=== PATIENT | male | born 1945 | race Two or more races ===

== ENCOUNTER → 2024-07-04 10:52 | Outpatient (BNV) | payer MEDICARE, MEDICAID, SELFPAY ==
[2024-07-04 10:52] VITALS: BP 143/71; PULSE 70; RESP 16; TEMP 35.9; O2SAT 97; BMI 33.5
--- NOTE | 2024-07-04 10:52 | URONOTE_ITS ---
Intake Vital Signs 07/04/24 10:52 Height 1.63 m Height Method Stated Weight 88.451 kg Weight Measurement Method Standing Scale BMI 33.5 Temp 96.6 F L Temp Source Temporal Artery Scan Pulse 70 Pulse Source Monitor Respiration 16 BP 143/71 H Blood Pressure Source Automatic Cuff Blood Pressure Location Left Upper Arm Position Sitting Pulse Oximetry (%) 97 Oxygen Delivery Method Room Air Intake Immunizations / Flu Flu Vaccine in the Last 12 Months: Yes Flu Vaccine Exclusion Criteria: Already Received Smoking Status Smoking Status: Never smoker Nurse's Notes Nurse's Notes Present with doctor during prostate exam. pt will be scheduled for prostate biopsy at [facility]. pt will follow up with Dr. Benitez in 4 months. pts name placed on Dr. Ruiz's list. ms Questionnaires Social History Living Situation History Housing: House Tobacco History Smoking Status: Never smoker Alcohol History Alcohol Intake: Current Alcohol Intake Frequency: holidays/special occasions only Review of Systems Report any current symtoms Select symptoms you are currently experiencing: Past Medical History Past Medical History Have you ever been diagnosed with any of the following: Cardiology Problems Hypercholesterolemia: Yes Congestive Heart Failure: No Hypertension: Yes Respiratory Problems Chronic Obstructive Pulmonary Disease (COPD): No Stomache/Intestinal Problems Gastroesophageal Reflux Disease: Yes Genital/Urinary Problems Renal Disease: No Benign Prostatic Hyperplasia: Yes Musculoskeletal Problems Arthritis: Yes Head,Eye,Nose,Throat Problems Cataracts: Yes Endocrine Problems Diabetes Mellitus Type 1: No Diabetes Mellitus Type 2: Yes Office Procedures Uro Level of Care Nursing/Assessment/Reassessment Patient Status: Established Patient Nursing Assessment/Reassessment: Update [facility] data in EMR, Vital Signs and Medication Reconciliation Coordination of Care: Simp Pt/[facility] Ed for care Special Needs: Language special needs Established Patient Point Assignment: 50 Established Patient Point Charge: EP Level 2 (40-75) Procedure IM Injection: No Provider Notes Provider Notes HISTORY OF PRESENT ILLNESS: [] REVIEW OF SYSTEMS: [] EXAM: [] ASSESSMENT & PLAN: [] VISIT DIAGNOSIS: []
== END ==
DX: I10 Essential (primary) hypertension (principal)
CPT/HCPCS: 99212; G0463

== ENCOUNTER → 2024-07-04 | Outpatient (BNVA) | payer MEDICARE, MEDICAID, SELFPAY | END | disposition home or self-care (01) | PROVIDERS: PCP Physician Assistant Medical; Referring Provider Physician Assistant Medical; Visit Provider Urology | DX: N40.1 Benign prostatic hyperplasia with lower urinary tract symptoms (principal); N13.8 Other obstructive and reflux uropathy; C61 Malignant neoplasm of prostate; Z80.42 Family history of malignant neoplasm of prostate; E11.9 Type 2 diabetes mellitus without complications; I10 Essential (primary) hypertension; E66.9 Obesity, unspecified | CPT/HCPCS: 99212; G0463 ==

== ENCOUNTER → 2025-01-29 | Outpatient (BNVA) | payer MEDICARE, MEDICAID, SELFPAY | END | disposition home or self-care (01) | PROVIDERS: PCP Physician Assistant Medical; Referring Provider Physician Assistant Medical; Visit Provider Urology | DX: N40.1 Benign prostatic hyperplasia with lower urinary tract symptoms (principal); N13.8 Other obstructive and reflux uropathy; C61 Malignant neoplasm of prostate; Z80.42 Family history of malignant neoplasm of prostate; E11.9 Type 2 diabetes mellitus without complications; I10 Essential (primary) hypertension; E66.9 Obesity, unspecified; Z68.34 Body mass index [BMI] 34.0-34.9, adult; E78.00 Pure hypercholesterolemia, unspecified; K21.9 Gastro-esophageal reflux disease without esophagitis | CPT/HCPCS: 99212; G0463 ==

== ENCOUNTER 2025-04-05 12:45 | Emergency (ER) | payer MEDICARE, MEDICAID, SELFPAY ==
[2025-04-05] VITALS (7 sets, daily range): BP systolic 170–193; BP diastolic 66–86; PULSE 68–89; RESP 16–18; TEMP 36.8–37.2; O2SAT 95; BMI 30.8
--- NOTE | 2025-04-05 13:14 | XR_ITS ---
Examination: CT soft tissue neck, with intravenous contrast. 2-D coronal reconstructions. 2-D sagittal reconstructions. Date and time of exam :April 05, 2025, 1538 hours INDICATIONS: Right-sided neck swelling beginning 2 days ago. CTDI: vol (mGy):11.8 DLP: (mGycm):352 Technique: 1.25 mm axial sections of the neck of the obtained. Coronal and sagittal reconstructions have been obtained. Intravenous contrast administered 50 cc Isovue-370. Low dose protocols were performed. One or more of the following dose reduction techniques were used; automated exposure control, adjustment of the mA and/or KV according to patient size, use of iterative reconstruction technique. Findings: 4.0 x 3.6 x 2.1 cm enhancing mass in the central left sphenoid ridge region most consistent with sphenoid ridge meningioma with extensive edema surrounding this mass and marked mass effect upon the frontal horns Edema in the frontal lobes is very extensive Symmetrical nasopharynx oropharynx Heavy right carotid calcification Septated cystic mass in the right neck lateral to the laryngeal cartilage, 4.1 x 3.6 cm x 6.7 cm which merges with the right lobe of the thyroid Normal epiglottis IMPRESSION: 4.0 x 3.6 x 2.1 cm enhancing mass in the central left subfrontal region most consistent with sphenoid ridge meningioma, extensive surrounding edema Recommend brain MRI follow-up pre and postcontrast Large septated cystic mass in the right neck lateral to the laryngeal cartilage which merges with the right lobe of the thyroid Recommend thyroid sonography follow-up
--- NOTE | 2025-04-05 13:15 | PD.EDRME ---
Rapid Medical Screening Exam RME Arrival date/time: 04/05/25 12:45 80-year-old male presents to the Emergency Department today for complaint of right-sided neck swelling ongoing x 1 day Chief Complaint: Skin/Abscess/Foreign Body Vital signs: Vital Signs Temperature 99 F 04/05/25 13:11 Pulse Rate 83 04/05/25 13:11 Respiratory Rate 18 04/05/25 13:11 Blood Pressure 170/66 H 04/05/25 13:11 Pulse Oximetry (%) 95 04/05/25 13:11 Oxygen Delivery Method Room Air 04/05/25 13:11
[2025-04-05 13:50] LABS: Basophils # (Auto) 0.0 Thou/mm3 (0.0-0.2); Basophils % (Auto) 0 % (0-2.5); Eosinophils # (Auto) 0.0 Thou/mm3 (0.0-0.5); Eosinophils % (Auto) 0 % (0-10); Hematocrit 42.1 % (41.0-53.0); Hemoglobin 15.2 g/dL (13.5-16.0); Immature Granulocytes Auto 0.03 Thou/mm3 (0.00-0.00); Lymphocytes # (Auto) 1.2 Thou/mm3 (1.0-4.8); Lymphocytes % (Auto) 16 % (10-50); Mean Corpuscular HGB Conc 36.1 g/dl (31.0-37.0); Mean Corpuscular Hemoglobin 31.0 pg (25.0-35.0); Mean Corpuscular Volume 86 fL (80-100); Monocytes # (Auto) 0.4 Thou/mm3 (0.0-0.8); Monocytes % (Auto) 6 % (0-12); Neutrophils # (Auto) 5.7 Thou/mm3 (1.8-7.7); Neutrophils % (Auto) 78 % (37-80); Nucleated Red Blood Cell # 0.00 Thou/mm3 (0.00-0.00); Nucleated Red Blood Cell % 0 /100 WBC (0); Platelet Count 184 Thou/mm3 (140-440); RDW Standard Deviation 36.6 fL (35.1-43.9); Red Blood Count 4.90 Miln/mm3 (4.50-5.90); White Blood Count 7.4 Thou/mm3 (3.8-10.6)
[2025-04-05 14:05] LABS: INR 1.0 (0.9-1.3); Partial Thromboplastin Time 25.2 Seconds (22.0-36.0); Prothrombin Time 11.0 Seconds (9.0-12.2)
[2025-04-05 14:09] LABS: Alanine Aminotransferase 38 U/L (10-49); Albumin, Serum 4.6 gm/dL (3.4-4.8); Albumin/Globulin Ratio 2.4 (1.2-2.2); Alkaline Phosphatase 98 U/L (46-116); Anion Gap 10 (7-16); Aspartate Amino Transferase 30 U/L (0-34); BUN/Creatinine Ratio 12 Ratio (12-20); Bilirubin,Total 1.4 mg/dL (0.3-1.2); Blood Urea Nitrogen 12 mg/dL (9-23); Calcium 9.8 mg/dL (8.3-10.6); Calcium (Corrected) 9.8 mg/dL (8.5-10.1); Carbon Dioxide 23.2 mMol/L (20.0-31.0); Chloride 101 mMol/L (98-107); Creatinine (Component) 1.0 mg/dL (0.6-1.3); Estimated Creatinine Clearance 62.8 mL/min (>60); Globulin 1.9 gm/dL (2.3-3.5); Osmolality,Calculated 288 (275-295); Potassium 4.1 mMol/L (3.4-5.1); Sodium 134 mMol/L (136-145); Total Protein 6.5 gm/dL (5.7-8.2); eGFR > 60 See Note
[2025-04-05 14:11] LABS: Glucose 469 mg/dL (74-106)
[2025-04-05] MEDS: SODIUM CHLORIDE 0.9% 1000 ML 1,000 ML 999 ML IV (15:39)
[2025-04-05 15:42] LABS: Glucose Estimated Average 217 mg/dL (80-131); Hemoglobin A1C 9.2 % Hgb (4.8-6.0)
[2025-04-05] MEDS: INSULIN HUM REGULAR 1 UNIT/0.01 ML (PER UNIT) 10 UNIT SC (17:59)
--- NOTE | 2025-04-05 18:26 | PD.EDSKIN ---
ED Skin Abcess FB-RME/HPI General Chief complaint: Skin/Abscess/Foreign Body Stated complaint: Abscess to right lower neck since yesterday Time Seen by Provider: 04/05/25 17:40 Arrival date/time: 04/05/25 12:45 RME / HPI RME / HPI narrative: 04/05/25 12:45 80-year-old male presents to the Emergency Department today for complaint of right-sided neck swelling ongoing x [address] LITTLE MAIN ED EVALUATION: Patient inadvertently noted swelling to the base of the right anterior neck x 1 day [employer]. Seen by PMD earlier today who referred patient to ED due to sub-optimally controlled blood pressure and blood sugar. No reported fevers, chills, difficulty swallowing or breathing. Related Data Home Medications ?Medication ?Instructions ?Recorded ?Confirmed amlodipine 10 mg tablet (Norvasc) 10 mg PO QDAY #0 tabs 12/02/16 01/29/25 insulin glargine 100 unit/mL 30 unit subcut QPM 05/11/19 01/29/25 subcutaneous solution (Lantus U-100 Insulin) tamsulosin 0.4 mg capsule 0.4 mg PO QDAY 10/05/19 01/29/25 docusate sodium 100 mg capsule 100 mg PO BID PRN 03/23/22 01/29/25 latanoprost 0.005 % eye drops 1 drp Both eyes QPM 03/23/22 01/29/25 losartan 50 mg-hydrochlorothiazide 1 tab PO QDAY 03/23/22 01/29/25 12.5 mg tablet cholecalciferol (vitamin D3) 125 125 mcg PO QDAY 12/08/22 01/29/25 mcg (5,000 unit) capsule finasteride 5 mg tablet 5 mg PO QDAY 07/06/23 01/29/25 Previous Rx's ?Medication ?Instructions ?Recorded levetiracetam 500 mg tablet 500 mg PO BID #60 tabs 05/11/19 (Keppra) Allergies Allergy/AdvReac Type Severity Reaction Status Date / Time No Known Allergies Allergy Verified 01/29/25 11:26 Review of Systems Review of Systems Systems Reviewed: All systems reviewed, normal except as documented Past Medical History Past Medical History CARDIAC: Positive Hypercholesterolemia and Hypertension GASTROINTESTINAL: Positive Gastrointestinal Disorders and Gastroesophageal Reflux Disease GENITOURINARY: Positive Genitourinary Disorders, Prostate Cancer and Benign Prostatic Hyperplasia MUSCULOSKELETAL: Positive Musculoskeletal Disorders and Arthritis ENT: Positive Cataracts ENDOCRINE: Positive Endocrine Disorders and Diabetes Mellitus Type 2 OTHER HISTORY: Positive Cancer and Prostate Cancer Family History FAMILY HISTORY: Positive Family Cancer (father ;prostate ca) ED Exam Narrative Physical exam: GEN. APPEARANCE: The patient is alert awake oriented X-3 in no distress, lying down comfortably, does not look ill/toxic. Patient has good eye contact. Patient is cooperative. VITALS: All vitals were reviewed and the pulse ox is 95% on room air which is normal according to my interpretation. Notably hypertensive. HEENT: Normocephalic, atraumatic. Pupils are equal and reactive. Oral mucosa is moist. Patent Nares NECK: Easily palpable mass to right anterior base without overlying skin changes, no tracheal shift, no stridor. CHEST: Symmetrical, atraumatic, and with equal expansion , Nontender on palpation no deformity and no crepitus. CARDIOVASCULAR: Heart regular rhythm no murmur or gallop rub or extra beats. LUNGS: Clear to auscultation bilaterally with symmetrical chest rise. No laboring tachypnea or wheezing. No intercostal subcostal retraction. No rales and no rhonchi. ABDOMEN: Soft, flat, nontender to palpation, no guarding or rebound tenderness. There are no abnormal masses palpated. Active and normal bowel sounds. EXTREMITIES: Nontender. No edema. No cyanosis. Patient is able to move all 4 extremities well, with full ROM and good CSM. SKIN: Warm and dry, no jaundice or rashes noted. MUSCULOSKELETAL: No lubar or midline bony tenderness. There is no CVA tenderness. No paraspinal muscle spasm or tenderness. NEURO: Patient is LUEVANO x 4, Cranial nerves II through XII grossly intact. There is no focal neurologic deficits noted. GCS is 15, PNS and [employer] appear grossly intact. PSYCHIATRIC: Patient is in normal mood and affect, cooperative, no SI or HI or hallucinations. Course Quality Measures none Orders Category Date Time Status CT Screening NOW Care 04/05/25 13:[address] soft tissue neck w con Stat Exams 04/05/25 13:14 Completed A1C [Glycohemoglobin w (eAG)] Stat Lab 04/05/25 13:38 Completed CBC Stat Lab 04/05/25 13:38 Completed CMP [Comprehensive Metabolic Panel] Stat Lab 04/05/25 13:38 Completed PT [Prothrombin Time with INR] Stat Lab 04/05/25 13:38 Completed PTT [Partial Thromboplastin Time] Stat Lab 04/05/25 13:38 Completed Insulin Regular Med 04/05/25 15:05 Discontinued 10 unit SC X1 ONE Sodium Chloride 0.9% 1000 ml [Ns] 1,000 ml Med 04/05/25 15:04 Discontinued IV 999 mls/hr hydrALAZINE INJ [Apresoline Inj] Med 04/05/25 18:40 Discontinued 10 mg IVP X1 ONE hydrALAZINE INJ [Apresoline Inj] Med 04/05/25 19:18 Once 10 mg IVP X1 ONE Vital Signs Vital signs: Vital Signs Temperature 99 F 04/05/25 13:11 Pulse Rate 83 04/05/25 13:11 Respiratory Rate 18 04/05/25 13:11 Blood Pressure 170/66 H 04/05/25 13:11 Pulse Oximetry (%) 95 04/05/25 13:11 Oxygen Delivery Method Room Air 04/05/25 13:11 Skin / Abscess / Foreign Body MDM Narrative MDM Narrative:: Scribe Attestation: ISvetlana, am scribing for and in the presence of Dr. Little. Provider Notation: Although this document has been carefully reviewed, there may still be some phonetic and other typographical errors. These errors are purely grammatical due to imperfections in the software program and should not be construed in any way to? compromise the substance of the patient's medical care during this visit. Patient inadvertently noted swelling to the base of the right anterior neck x 1 day [employer]. Seen by PMD earlier today who referred patient to ED due to sub-optimally controlled blood pressure and blood sugar. Please refer to MDM findings. Please see PE findings. Chemistry demonstrated normal WBC of 7.4, hemoglobin 15.2, with no left shift or associated anemia. Platelet count is 184. Normal renal function, elevated blood sugar of 469 mg/dL, no acidosis, and no anion GAP. Special studies, including CT scan of the head and neck demonstrate large sphenoid based tumor with mass-effect involving frontal horns, slightly worse than previous. Additionally noted is a cystic mass lateral to meningeal cartilage merging with thyroid gland. Patient is neurologically intact and has previously refused surgery regarding intracranial mass. Currently being followed by neurologist and is on anticonvulsant. Will discuss with neurosurgeon initiation of steroid therapy with adjustment of insulin due to [id number] related hyperglycemia. Patient was treated here with regular insulin subcutaneously with gradually reducing blood sugar. Case discussed with on-duty neurologist and given asymptomatic status, will refer to PMD to enact referral to neurosurgeon and ENT. Patient data External records reviewed:: [facility] previous records (No prior ED records available for review.) Clinical information provided by:: patient and spouse () Social determinants that could affect healthcare access:: none Patient has the following chronic illnesses:: Hypercholesterolemia, Hypertension, Gastroesophageal Reflux Disease, Prostate Cancer, Benign Prostatic Hyperplasia, Arthritis, Cataracts, Diabetes Mellitus Type 2 How is presenting disease/condition affected by chronic disease/condition?: exacerbated by Evaluation data The following diagnostics were reviewed and interpreted by me:: lab results and radiology exam(s) Lab and/or radiology exams considered but not ordered:: None Interpretation Summary: RADIOLOGY Soft Tissue Neck CT: Findings: 4.0 x 3.6 x 2.1 cm enhancing mass in the central left sphenoid ridge region most consistent with sphenoid ridge meningioma with extensive edema surrounding this mass and marked mass effect upon the frontal horns Edema in the frontal lobes is very extensive Symmetrical nasopharynx oropharynx Heavy right carotid calcification Septated cystic mass in the right neck lateral to the laryngeal cartilage, 4.1 x 3.6 cm x 6.7 cm which merges with the right lobe of the thyroid Normal epiglottis IMPRESSION: 4.0 x 3.6 x 2.1 cm enhancing mass in the central left subfrontal region most consistent with sphenoid ridge meningioma, extensive surrounding edema Recommend brain MRI follow-up pre and postcontrast Large septated cystic mass in the right neck lateral to the laryngeal cartilage which merges with the right lobe of the thyroid Recommend thyroid sonography follow-up Medications / Prescriptions Medications or Prescriptions considered but not ordered:: None Medication administrations:: Medication Administration History Hydralazine HCl (Hydralazine Inj 20 Mg/Ml Vial) 10 mg IVP X1 ONE Stop: 04/05/25 19:19 Discontinued Medications Hydralazine HCl (Hydralazine Inj 20 Mg/Ml Vial) 10 mg IVP X1 ONE Stop: 04/05/25 18:41 Last Admin: 04/05/25 18:47 Dose: 10 mg Documented By: DB Sodium Chloride (Ns) 1,000 mls @ 999 mls/hr IV .Q1H1M ONE Stop: 04/05/25 16:04 Last Infusion: 04/05/25 16:42 Dose: Infused Documented By: Admin: 04/05/25 15:39 Dose: 999 mls/hr Documented By: Insulin Human Regular (Insulin Hum Regular 1 Unit/0.01 Ml (Per Unit)) 10 unit SC X1 ONE Stop: 04/05/25 15:06 Last Admin: 04/05/25 17:59 Dose: 10 unit Documented By: DB Co-signed By: OA See above if any. Consultations Consultation(s) initiated? (list below): Yes Consultation #1 (Physician, Specialty, Details): Case discussed with on-duty neurologist. Will follow recommendation. Time: 18:40 Diagnosis Skin/Abscess Differential Diagnosis: abscess of skin or subcutaneous tissue Most likely diagnosis given after review of the tests above:: Meningioma, Mass of right side of neck, Hypertension, Hyperglycemia without ketosis Admission Indicated Admission indicated?: not indicated Explain why admission is indicated or not indicated:: Patient does not meet admission criteria. Admission Request Was there a request for admission?: No Disposition Plan Disposition Plan: Discharge Discharge Attestation Discharge Attestation: The patient and all family members were given an opportunity to ask questions and understood the discharge instructions. Discharge instructions specifically effects, indications for sooner follow up or return to the emergency department, and the expected course of current diagnosis. Patient condition: Stable Discharge Plan Plan Patient Disposition: HOME (Self Care) Discharge Disposition comment: STABLE Prescriptions/Referrals Prescriptions/Med Rec: No Action tamsulosin 0.4 mg capsule 0.4 mg PO QDAY docusate sodium 100 mg capsule 100 mg PO BID PRN losartan-hydrochlorothiazide 50-12.5 mg tablet 1 tab PO QDAY latanoprost 0.005 % drops 1 drp Both eyes QPM finasteride 5 mg tablet 5 mg PO QDAY cholecalciferol (vitamin D3) 125 mcg (5,000 unit) capsule 125 mcg PO QDAY amlodipine [Norvasc] 10 MG tablet 10 mg PO QDAY Qty: 0 levetiracetam [Keppra] 500 mg tablet 500 mg PO BID Qty: 60 0RF Lantus U-100 Insulin 100 unit/mL solution 30 unit subcut QPM Patient Comments: INJECT 30 UNITS BY SUBCUTANEOUS ROUTE IN THE EVENING Referrals: No Primary/Family,Physician [Primary Care Provider] - In 1 week Problem List Clinical Impression: Meningioma, Mass of right side of neck, Hypertension, Hyperglycemia without ketosis Patient/Caregiver Discharge Instructions Discharge Activity: activity as tolerated Education Materials: Brain Tumors Additional Instructions: Continue blood pressure medications as prescribed earlier today. Follow-up with primary care for both ENT and neurosurgical referrals. Print Language: Emirati Stand Alone Forms: Rosa Award Info., Patient Portal Info Letter
[2025-04-05] MEDS: hydrALAZINE INJ 20 MG/ML VIAL 10 MG IVP ×2 (18:47→19:32)
== END 2025-04-05 20:00 | disposition home or self-care (01) ==
PROVIDERS: Nurse Practitioner Primary Care; Emergency Provider Emergency Medicine
DX: D32.0 Benign neoplasm of cerebral meninges (principal); R22.1 Localized swelling, mass and lump, neck; E11.65 Type 2 diabetes mellitus with hyperglycemia; I10 Essential (primary) hypertension; Z79.4 Long term (current) use of insulin
CPT/HCPCS: 36415; 70491; 80053; 83036; 85025; 85610; 85730; 96361; 96374; 96376; 99283; A4649; J0360; J1815; J7030; Q9967

== ENCOUNTER → 2025-05-29 | Outpatient (CLI) | payer MEDICARE, MEDICAID, SELFPAY ==
--- NOTE | 2025-05-29 12:00 | XR_ITS ---
EXAMINATION: Thyroid sonography complete TECHNIQUE: Grayscale sonographic images thyroid lobes Date and time: May 29, 2025, 12:51 p.m. INDICATIONS: Palpable right neck lump for several months. FINDINGS: Right thyroid 7.2 cm Upper pole septated cystic mass 5.1 x 4.8 cm with internal echogenicity Lower pole cystic solid mass 2.5 x 3.2 cm Left thyroid 4.3 cm Upper pole nodule 17 x 11 mm IMPRESSION: Bilateral thyroid nodules as above, consider ultrasound-guided fine-needle aspiration of the large complex mass in the upper right thyroid lobe 5.1 x 3.3 x 4.8 cm
== END | disposition home or self-care (01) ==
LOC: CDIM 12:32
PROVIDERS: PCP Family Medicine; Referring Provider Family Medicine; Visit Provider Family Medicine
DX: E04.2 Nontoxic multinodular goiter (principal)
CPT/HCPCS: 76536